=== PATIENT | female | born 1990 | race Caucasian/White ===

== ENCOUNTER → 2017-08-07 | Outpatient (CLI) | payer OTHER | LOC: RAD 13:32 | DX: J18.9 Pneumonia, unspecified organism (principal); Z87.09 Personal history of other diseases of the respiratory system ==

== ENCOUNTER → 2018-12-17 | Outpatient (CLI) | payer OTHER | LOC: ULTRA 10:06 | DX: E01.0 Iodine-deficiency related diffuse (endemic) goiter (principal) ==

== ENCOUNTER 2019-05-19 11:09 | Observation (INO) | payer OTHER ==
[~2019-05-19] VITALS: Ht 162.6 cm; Wt 0.6 kg
--- NOTE | ~2019-05-19 | O ---
[facility] [place] [address] OPERATIVE REPORT Name: NORMA CLEVELAND Room #: 438-P [facility] M.R.#: [id number] Admission: 05/19/19 Attend Phys: Austin Sanabria MD Discharge: Date of : 86 Report #: [id number] THIS REPORT FOR: //name// CC: Austin Cedillo MD PREOPERATIVE DIAGNOSIS: Cholecystitis, acalculous, abdominal pain. POSTOPERATIVE DIAGNOSIS: Acalculous cholecystitis with finding of adhesion, inflamed fundus, and cholesterolosis. PROCEDURE PERFORMED: Laparoscopic cholecystectomy with cholangiogram. SURGEON: Austin Sanabria MD. ANESTHESIA: General anesthesia. COMPLICATIONS: None. ESTIMATED BLOOD LOSS: 5 mL. DESCRIPTION OF PROCEDURE: With the patient under general anesthesia, abdomen was prepped and draped in sterile fashion. Timeout was performed. A 0.25% Marcaine was used. The patient did receive preoperative IV antibiotic. Transverse incision was made above the umbilicus after anesthetizing the skin and subcutaneous tissue with 0.25% Marcaine. Fascia was identified. Fascia was grasped with hemostat. Fascia was then opened under visualization. 0 Vicryl suture placed on the fascia for retraction. Veress needle was then placed through the peritoneum. Abdominal cavity was insufflated with CO2 without difficulty. After creating pneumoperitoneum, 11 mm trocar was placed through the peritoneum. No harm to underlying tissue. Two 5 mm trocars were placed in the right upper quadrant and another 5 mm trocar right epigastrium. The gallbladder fundus had reddish blotchy area, probably hyperemia consistent with inflammation. The fundus also appears to be thicker than the rest of the gallbladder. The gallbladder was lifted over the liver. There were extensive adhesions on the inferior aspect of the gallbladder. These fatty adhesions were taken down exposing the entire gallbladder. Peritoneum was dissected free laterally and then inferior and medially isolating the triangle of Calot. Cystic duct was identified. The cystic artery was initially fairly close to the cystic duct. The artery was isolated without difficulty. The entire triangle of Calot was opened up and visualized. Common duct is barely visible medially and posteriorly. Clip was placed in junction of cystic duct to the gallbladder. Opening was made in the cystic duct. Cholangiogram catheter was inserted. Fluoroscopic cholangiogram was obtained. Common bile duct filled out well. The cholangiogram catheter was identified in the cystic duct. No harm to common duct. There is no filling defect in the common duct. After normal [facility] [address] [place] [address] OPERATIVE REPORT Name: NORMA CLEVELAND Room #: 438-P [facility] Ambreen Eckert#: [id number] Admission: 05/19/19 Attend Phys: Austin Sanabria MD Discharge: Date of : 86 Report #: [id number] cholangiogram, the catheter was removed. The proximal part of cystic duct was clipped x 2 and then divided. Cystic artery was then divided. The cystic artery bifurcated and the posterior branches were individually clipped x 2 proximally and 1 distally and then divided. Gallbladder was then freed from the liver bed without difficulty. The gallbladder was retrieved through the trocar adjacent to the umbilicus. The gallbladder was opened off the field at the end of the case and had extensive amount of cholesterolosis. There is some cholesterol debris floating in the bile and also the bile was sludgy. Liver bed was checked, hemostasis obtained. Irrigation was aspirated out. Trocars removed. The patient tolerated the procedure well. The fascia defect above the umbilicus was closed under visualization with 0 Vicryl [id number] x 2. Skin was irrigated, closed with 5-0 PDS. Steri-Strip, Band-Aids applied. The patient was taken to recovery room. By: 1312 1329 Austin Sanabria MD /nt
[2019-05-19] MEDS ORDERED: BENTYL 10 MG CA10 MG PO (12:14)
[2019-05-19] MEDS ORDERED: LAMOTRIGINE250 MG PO (12:15)
[2019-05-19] MEDS ORDERED: LEVO-T75 MCG PO (12:15)
[2019-05-19] MEDS ORDERED: TRAZODONE 150150 M1 PO (12:16)
[2019-05-19] MEDS ORDERED: SPIRONOLACTONE25 MG PO (12:17)
[2019-05-19] MEDS ORDERED: SINGULAIR 10 MG10 MG PO (12:18)
[2019-05-19] MEDS ORDERED: LATUDA60 MG PO (12:19)
[2019-05-19] MEDS ORDERED: XANAX1 MG PO (12:20)
[2019-05-19] MEDS ORDERED: ZOFRAN4 MG PO (12:20)
[2019-05-19 13:00] VITALS: BP 111/70
--- NOTE | 2019-05-19 15:25 | H ---
[facility] [place] [address] HISTORY AND PHYSICAL Name: NORMA CLEVELAND Room #: 150-5 [facility] M.R.#: [id number] Admission: 05/19/19 Attend Phys: Austin Sanabria MD Discharge: Date of : 86 Report #: [id number] THIS REPORT FOR: //name// CC: Austin Cedillo PREOPERATIVE DIAGNOSES: Abdominal pain, right upper quadrant consistent with Acalculous cholecystitis. HISTORY: The patient is a 29-year-old, who 5 weeks ago started to have abdominal pain, diarrhea, and nausea. The patient thought she had a flu. She also thought there was irritation from taking Celebrex. Symptoms have gotten progressively worse. She has trouble eating now. She has cut out fatty food, but still is having right upper quadrant pain. Eating would make her feel sick. She has lost weight. The pain is mostly right upper quadrant, occasionally epigastric and occasionally goes to her back. Has nausea without vomiting. Does have bloating and gas. She is waking up in the night from pain. Her stools are looser and yellow looking. She does have some prior history of loose stools and bloating and gas in the past. The patient does have issues with fried greasy food causes some lower abdominal pain and diarrhea. There is extensive family history of gallbladder disease. Mother and her siblings has had gallbladder removed and both maternal grandparents. Mother had a gallbladder polyp and apparently, an uncle close, have a ruptured gallbladder. The patient had an ultrasound. There is some ring down artifact, which has a focus of that. This is thought to be adenomyomatosis of the gallbladder. No stones are seen. The patient was recommended to have a PIPIDA scan. The patient refused. She is recommended to proceed with gallbladder surgery. PAST MEDICAL HISTORY: She has history of bipolar disorder. She does receive ECT treatment. History of asthma, history of sleep apnea, history of Imtiaz's. The patient has had 2 pregnancies. The patient has a history of spontaneous pneumo in 2010 and had a chest tube placed. PAST SURGICAL HISTORY: 2 nasal surgeries in 2002 and 2006, salpingectomy in 2019. ALLERGIES: SHE IS ALLERGIC TO LATEX. MEDICATIONS: The patient's medication includes dicyclomine. The patient also has Imtiaz's disorder. The patient takes levothyroxine, lamotrigine, trazodone, spironolactone, Singulair, Latuda, which is on hold. Percival, alprazolam, Zofran, cyclobenzaprine, Benadryl, and albuterol. FAMILY HISTORY: Gallbladder disease on the mother's side. History of asthma, thyroid disorder, and bipolar disorder. SOCIAL HISTORY: She is a homemaker. She does not smoke or drink. [facility] [address] [place] [address] HISTORY AND PHYSICAL Name: NORMA CLEVELAND Room #: 150-5 [facility] M.R.#: [id number] Admission: 05/19/19 Attend Phys: Austin Sanabria MD Discharge: Date of : 86 Report #: [id number] REVIEW OF SYSTEMS: No chest pain, shortness of breath, or palpitation. No numbness or weakness. PHYSICAL EXAMINATION: GENERAL: The patient is a mildly obese female. She is not in acute distress. HEENT: Pupils react to light. Extraocular muscles are intact. No jaundice. NECK: Soft, supple, no masses. LUNGS: Clear to auscultation. HEART: Regular rate and rhythm. No murmur or gallop. ABDOMEN: Soft and nondistended. She is quite tender over the right upper quadrant to palpation. Negative An sign. No mass, guarding, or rigidity. EXTREMITIES: No cyanosis, clubbing, or edema. Motor and sensory exams are unremarkable. IMPRESSION: The patient is a 29-year-old with abdominal pain, right upper quadrant. She has greasy food intolerance. She is having diarrhea issue, bloating, and gas. Symptoms are fairly classic gallbladder disease. There is extensive family history of gallbladder disease. Ultrasound shows a ring down artifact likely adenomyomatosis. No stones. RECOMMENDATION: PIPIDA scan with Kinevac injection was discussed. The patient refuses to take that test. I believe even that this was explained as a supportive test. Even if the test is abnormal, I think she has enough clinical indication to have a gallbladder removed. The patient is brought in for laparoscopic cholecystectomy. Intraoperative cholangiogram was discussed. Risk of bleeding, infection, common bile duct injury was discussed. The patient understands and wishes to proceed. <ELECTRONICALLY SIGNED> By: Austin Sanabria MD 05/19/19 1525 0925 Austin Sanabria MD /nt
[2019-05-20 03:00] VITALS: BP 117/70
--- NOTE | 2019-05-20 06:16 | NUR ---
ASSESSMENT COMPLETD. PT IS ALERT AND ORIENTED. LAP SITES LOOK OKAY WITH BANDAIDS IN PLACE. PT BEEN GETTING HYDROCODONE WITH RELIEF OF PAIN. UP AD CONNIE TO THE BATHTROOM. FEELING BETTER THIS MORNING. AFEBRILE. WILL CONTINUE WITH POC TILL EOS.
[2019-05-20 08:47] VITALS: BP 100/58
[2019-05-20] MEDS ORDERED: NORCO 5-325 TA1 EAC1 PO (12:21)
[2019-05-20] MEDS ORDERED: ZOFRAN4 MG PO (12:22)
[2019-05-20 13:38] VITALS: BP 100/58
--- NOTE | 2019-05-20 16:16 | NUR ---
PT CARE ASSUME 0700. A&Ox4. CALL LIGHT WITHIN REACH. PT. PAIN WELL CONTROLLED. DEFERRED PAIN PRESENT FROM GASSES POST SURGERY. PT. SLEPT MOST OF THE MORNING WITH CPAP FROM HOME. SCD'S ON. FLUIDS RUNNING. IV PATENT AND FLUSHING. LAPSITES ALL INTACT. PT. USES ICEPACK. VITALS SIGNS STABLE. PT. DISCHARGED WITH TO HOME.
--- NOTE | 2019-05-25 08:06 | PATH ---
[facility] [address] [place] [address] PATHOLOGY RPT PROCEDURE Name: NORMA CLEVELAND Room #: 438-P BONIFAC[facility] Crook MRichardRRichard#: [id number] Admission: 05/19/19 Date of : 86 Discharge: 05/20/19 Report #: [id number] Path Case #: [id number] [facility] Accession Number: [id number] . 01 Material submitted: . gallbladder - GALLBLADDER . 01 Clinical history: . CHOLECYSTITIS . 02 Diagnosis: Gallbladder, cholecystectomy: - Mild chronic cholecystitis. - Cholesterolosis. (IUV/db; 05/22/2019) LBQ 05/22/2019 1344 Local . 02 Electronically signed: . Karly Bermudez MD, Pathologist NPI- [id number] . 01 Gross description: . Received in formalin labeled "Norma Cleveland, gallbladder," is a previously opened gallbladder measuring 7.8 x 2.4 x 1.3 cm in greatest dimensions. The serosal surface is wrinkled and yellow-green in appearance, displaying scant attached adipose tissue. The mucosal surface is granular and dark green in appearance, diffusely stippled with faint yellow highlights and measuring 0.1 cm in thickness, with a gallbladder wall thickness of up to 0.3 cm including attached adipose tissue. Multiple green-yellow possible polyps are noted on the mucosal surface, measuring up to 0.2 cm in maximum dimension and extending to within 1.5 cm of the infundibulum. Calculi are not present within the specimen or specimen container. Neurological Surgery Teacher sections of the infundibulum, body and fundus are submitted in cassette A1, to include the largest possible polyps. ([facility]; 05/20/2019) XDC/XCT 05/20/2019 0838 Local . 02 Pathologist provided ICD-10: K81.1, K82.4 . 02 CPT . 655180 Specimen Comment: A courtesy copy of this report has been sent to [phone] Specimen Comment: [id number] Specimen Comment: Report sent to / [place] [address] PATHOLOGY RPT PROCEDURE Name: NORMA CLEVELAND Room #: 438-P [facility] Eckert#: [id number] Admission: 05/19/19 Date of : 86 Discharge: 05/20/19 Report #: [id number] Path Case #: [id number] Specimen Comment: Report sent to Performed at: [address] [facility], [place], [place] [id number] MD Ronen Barron MD Phone: [phone] Performed at: [address] [facility] [id number] MD Karly Bermudez MD Phone: [phone]
== END 2019-05-20 16:44 | disposition home or self-care (01) ==
LOC: OR 11:09 → TBA 11:10 → OR 16:16 → 4S 17:08 → OR 17:09 → 4S 17:09 → ENTRNSPT 05-20 14:12 → EDTRNSPTSTS 05-20 14:16 → 4S 05-20 16:44
PROVIDERS: ADMIT Surgery
DX: K81.9 Cholecystitis, unspecified (principal); K82.8 Other specified diseases of gallbladder; R11.2 Nausea with vomiting, unspecified; R19.7 Diarrhea, unspecified; F31.9 Bipolar disorder, unspecified; J45.909 Unspecified asthma, uncomplicated; G47.30 Sleep apnea, unspecified
CPT/HCPCS: 50010; 50101; 50411; 50555; 50558; 51489; 53307; 53310; 55245; 55317; 56462; 56525; 56526; 62110; 62900; 70005

== ENCOUNTER → 2021-06-06 | Outpatient (CLI) | payer OTHER ==
[~2021-06-06] MED LIST: BENTYL 10 MG CA10 MG PO; LAMOTRIGINE250 MG PO; LATUDA60 MG PO; LEVO-T75 MCG PO; NORCO 5-325 TA1 EAC1 PO; SINGULAIR 10 MG10 MG PO; SPIRONOLACTONE25 MG PO; TRAZODONE 150150 M1 PO; XANAX1 MG PO; ZOFRAN4 MG PO
== END ==
LOC: ULTRA 12:35
PROVIDERS: ATTEND Nurse Practitioner
DX: R10.31 Right lower quadrant pain (principal)